=== PATIENT | female | born 1945 | race African-American/Black ===

== ENCOUNTER 2024-08-09 12:14 | Emergency (ER) | payer OTHER, SELFPAY ==
[2024-08-09 12:31] VITALS: BP 160/89; PULSE 115; RESP 22; TEMP 36.7; O2SAT 97; BMI 31.8
--- NOTE | 2024-08-09 12:35 | EKG_ITS ---
[facility] Test Date: 2024-08-09 Pat Name: BISHNU DOMINGO Department: Room: - Gender: Female Records Management Assistant: : [id number] Requested By: Zackery Kelsey Order Number: [id number] Reading MD: Zackery Kelsey Measurements Intervals [place] Rate: 110 P: 44 WI: 144 QRS: 44 QRSD: 132 T: 36 QT: 354 QTc: 479 Interpretive Statements SINUS TACHYCARDIA POSSIBLE LEFT ATRIAL ENLARGEMENT [-0.1mV P-WAVE IN V1/V2] INDETERMINATE AXIS RIGHT BUNDLE BRANCH BLOCK [120+ ms QRS DURATION, UPRIGHT V1, 40+ ms S IN I/aVL/V4/V5/V6] Compared to ECG 01/30/2022 11:13:46 No significant changes /store/S0/[id number].pdf
--- NOTE | 2024-08-09 12:35 | XR_ITS ---
Examination: PA lateral chest 2 views TECHNIQUE: Upright PA lateral chest 2 views Exam date and time: August 09, 2024 1358 hours INDICATIONS: Chest pain bilateral feet ankle leg swelling beginning 2 days ago. FINDINGS: Normal heart size Mild ectasia thoracic aorta. Significant hyperexpansion. No lobar pneumonia or pulmonary edema IMPRESSION: Significant hyperexpansion No lobar pneumonia or pulmonary edema
--- NOTE | 2024-08-09 12:36 | PD.EDRME ---
Rapid Medical Screening Exam RME Arrival date/time: 08/09/24 12:14 79-year-old female with a history of CHF, hyperlipidemia, hypertension presents to the emergency room with a chief complaint of bilateral lower extremity swelling x 2 weeks that is progressively gotten worse in the last 4 days. I have greeted and performed a focused initial assessment of this patient. A comprehensive ED assessment and evaluation of the patient, analysis of all test results, and completion of the medical decision making process will be conducted by additional ED providers. Chief Complaint: Ankle/Foot Injury Time Seen by Provider: 08/09/24 12:22 Vital signs: Vital Signs Temperature 98.1 F 08/09/24 12:31 Pulse Rate 115 H 08/09/24 12:31 Respiratory Rate 22 H 08/09/24 12:31 Blood Pressure 160/89 H 08/09/24 12:31 Pulse Oximetry (%) 97 08/09/24 12:31 Oxygen Delivery Method Room Air 08/09/24 12:31 Vital signs reviewed by provider: Yes
[2024-08-09 13:36] LABS: Basophils # (Auto) 0.1 Thou/mm3 (0.0-0.2); Basophils % (Auto) 1 % (0-2.5); Eosinophils # (Auto) 0.1 Thou/mm3 (0.0-0.5); Eosinophils % (Auto) 1 % (0-10); Hematocrit 42.1 % (36.0-46.0); Hemoglobin 14.1 g/dL (12.0-16.0); Immature Granulocytes % (Auto) 0 % (0-0); Immature Granulocytes Auto 0.03 Thou/mm3 (0.00-0.00); Lymphocytes # (Auto) 3.5 Thou/mm3 (1.0-4.8); Lymphocytes % (Auto) 32 % (10-50); Mean Corpuscular HGB Conc 33.5 g/dl (31.0-37.0); Mean Corpuscular Hemoglobin 30.1 pg (25.0-35.0); Mean Corpuscular Volume 90 fL (80-100); Monocytes # (Auto) 0.9 Thou/mm3 (0.0-0.8); Monocytes % (Auto) 8 % (0-12); Neutrophils # (Auto) 6.4 Thou/mm3 (1.8-7.7); Neutrophils % (Auto) 59 % (37-80); Nucleated Red Blood Cell % 0 /100 WBC (0); Platelet Count 312 Thou/mm3 (140-440); RDW Standard Deviation 46.1 fL (36.4-46.3); Red Blood Count 4.68 Miln/mm3 (4.00-5.20)
[2024-08-09 13:52] LABS: Partial Thromboplastin Time 25.3 Seconds (22.0-36.0); Prothrombin Time 10.9 Seconds (9.0-12.2)
[2024-08-09 14:01] LABS: B-Type Natriuretic Peptide 33 pg/mL (0-100)
[2024-08-09 14:04] LABS: Alanine Aminotransferase 13 U/L (10-49); Albumin, Serum 4.3 gm/dL (3.4-4.8); Albumin/Globulin Ratio 1.8 (1.2-2.2); Alkaline Phosphatase 73 U/L (46-116); Anion Gap 8 (7-16); Aspartate Amino Transferase 14 U/L (0-34); BUN/Creatinine Ratio 12 Ratio (12-20); Bilirubin,Total 0.4 mg/dL (0.3-1.2); Blood Urea Nitrogen 12 mg/dL (9-23); Carbon Dioxide 27.3 mMol/L (20.0-31.0); Chloride 108 mMol/L (98-107); Estimated Creatinine Clearance 45.4 mL/min (>60); Globulin 2.4 gm/dL (2.3-3.5); Glucose 115 mg/dL (74-106); Magnesium 1.8 mg/dL (1.6-2.6); Osmolality,Calculated 285 (275-295); Sodium 143 mMol/L (136-145); Total Protein 6.7 gm/dL (5.7-8.2); Troponin I < 0.020 ng/mL (0.0-0.045); eGFR 57 See Note
[2024-08-09 15:29] LABS: Collection Type, Urine Clean Catch
[2024-08-09 15:35] LABS: Bilirubin,Urine Negative (Negative); Blood,Urine Negative (Negative); Clarity,Urine Clear (Clear/Hazy); Color,Urine Yellow (Lt Yel-Yel); Glucose, Urine Negative (Negative); Ketones,Urine Negative (Negative); Leukocyte Esterase,Urine Negative (Negative); Nitrite,Urine Negative (Negative); PH,Urine 6.5 (5.0-7.0); Protein,Urine Trace (Neg - Trace); RBC,Urine 4 /hpf (0-3); Squamous Epithelial Cell,Urine 5 /hpf (0-5); Urobilinogen,Urine Negative mg/dL (0.0-1.0); WBC,Urine 2 /hpf (0-5)
[2024-08-09 15:42] LABS: Amphetamine/Methamp Scrn,U Negative (Negative); Barbiturate Screen,Urine Negative (Negative); Benzodiazepines Screen,Urine Negative (Negative); Benzoylecgonine Screen, Ur Negative (Negative); Fentanyl Screen,Urine Negative (Negative); Opiate Screen,Urine Positive (Negative); THC Screen,Urine Positive (Negative)
[2024-08-09 16:12] VITALS: BP 152/86; PULSE 98; RESP 20; TEMP 36.6; O2SAT 95
--- NOTE | 2024-08-09 16:33 | PD.EDEXREM ---
ED Extremity Problem RME/HPI General Chief complaint: Ankle/Foot Injury Stated complaint: BILATERAL FEET, ANKLE, LEGS SWELLING X 2 DAYS Time Seen by Provider: 08/09/24 12:22 Arrival date/time: 08/09/24 12:14 RME / HPI RME / HPI Narrative: 79-year-old female with a history of CHF, hyperlipidemia, hypertension presents to the emergency room with a chief complaint of bilateral lower extremity swelling x 2 weeks that is progressively gotten worse in the last 4 days. Patient stopped taking her spironolactone for the last few days. Patient denies any chest pain denies any shortness of breath. A friend who brought the patient here is concerned because patient was just infected from her apartment. And she is temporarily staying with a friend. The friend is not comfortable taking care of her. She is asking if we can asked the social services director to help her. Related Data Home Medications ?Medication ?Instructions ?Recorded ?Confirmed hydrocodone 7.5 mg-acetaminophen 1 tab PO Q6H PRN Pain 06/02/20 01/30/22 325 mg tablet metoprolol succinate 25 mg 25 mg PO QDAY 06/02/20 01/27/22 tablet,extended release 24 hr omeprazole 40 mg capsule,delayed 40 mg PO QDAY 06/02/20 01/27/22 release rosuvastatin 5 mg tablet 5 mg PO QDAY 06/02/20 01/27/22 famotidine 40 mg tablet 40 mg PO HS 01/27/22 01/27/22 cholecalciferol (vitamin D3) 50 50 mcg PO QDAY 01/28/22 01/28/22 mcg (2,000 unit) tablet (Vitamin D3) Previous Rx's ?Medication ?Instructions ?Recorded apixaban 2.5 mg tablet (Eliquis) 2.5 mg PO BID #60 tabs 02/01/22 nicotine 14 mg/24 hr daily 14 mg top QDAY #7 ea 02/01/22 transdermal patch Allergies Allergy/AdvReac Type Severity Reaction Status Date / Time Penicillins Allergy Intermediate Swelling Verified 08/09/24 12:17 of Lip/Tongue/Throat Review of Systems Review of Systems Narrative Review of Systems: Review of system reviewed and within normal limits except mentioned in HPI ED Exam Narrative Physical exam: VITAL SIGNS: Reviewed. GENERAL APPEARANCE: Alert and interactive, follows commands, no acute distress, HEAD AND FACE: Non-traumatic. ENT: PERRL, pink conjunctivitis, eyelid no trauma, Mucous membrane moist. NECK: Supple, nontender, no nuchal rigidity. CHEST: No tenderness, no crepitus, no paradoxical movement, no retractions. LUNGS: Clear, well ventilated, symmetric, no rales, no wheezing, no ronchi, no stridor, good breath sounds bilaterally. HEART: Regular rate, regular rhythm, no murmur, no gallops. ABDOMEN: Soft, positive bowel sounds, nondistended, no guarding, nontender, no rebound, no masses, RECTAL: Deferred. GENITAL: Deferred. NEUROLOGICAL: Gross motor function intact sensory function intact, Appropriate for age. MUSCULOSKELETAL: low back nontender, full range of motion. EXTREMITIES: Bilateral lower extremity +2 edema, nontender, full range of motion. SKIN: Color pink, dry, no rash, no lacerations, no abrasions, no contusions. LYMPHATICS: Deferred. Course Quality Measures none Orders Category Date Time Status EKG (ED ONLY) *Do not use* NOW Care 08/09/24 12:35 Completed EKG (ED Only) Stat Exams 08/09/24 12:35 Draft XR chest 2V Stat Exams 08/09/24 12:35 Completed B-Type Natriuretic Peptide Stat Lab 08/09/24 13:21 Completed CBC Stat Lab 08/09/24 13:21 Completed Comprehensive Metabolic Panel Stat Lab 08/09/24 13:21 Completed Drug Screen,Urine Stat Lab 08/09/24 15:11 Completed Magnesium Stat Lab 08/09/24 13:21 Completed Partial Thromboplastin Time Stat Lab 08/09/24 13:21 Completed Prothrombin Time with INR Stat Lab 08/09/24 13:21 Completed Troponin I Stat Lab 08/09/24 13:21 Completed Urinalysis Stat Lab 08/09/24 15:11 Completed Referral Mold Press Operator NOW 08/09/24 16:33 Active Vital Signs Vital signs: Vital Signs Temperature 98.1 F 08/09/24 12:31 Pulse Rate 115 H 08/09/24 12:31 Respiratory Rate 22 H 08/09/24 12:31 Blood Pressure 160/89 H 08/09/24 12:31 Pulse Oximetry (%) 97 08/09/24 12:31 Oxygen Delivery Method Room Air 08/09/24 12:31 Extremity Problem MDM Narrative MDM Narrative:: 79-year-old female with a history of CHF, hyperlipidemia, hypertension presents to the emergency room with a chief complaint of bilateral lower extremity swelling x 2 weeks that is progressively gotten worse in the last 4 days. Patient stopped taking her spironolactone for the last few days. Patient denies any chest pain denies any shortness of breath. A friend who brought the patient here is concerned because patient was just infected from her apartment. And she is temporarily staying with a friend. The friend is not comfortable taking care of her. She is asking if we can asked the social services director to help her. Patient's workup today CBC came back unremarkable no leukocytosis. CMP unremarkable urinalysis no UTI. Chest x-ray came back unremarkable. EKG as interpreted by me shows sinus tachycardia, ventricular rate of 110 bpm, no ST segment elevation or depression noted. Patient was referred to social services director, in the emergency room, and told me that they were given resources. Patient is okay to visit her at home. Patient data External records reviewed:: None Clinical information provided by:: none Social determinants that could affect healthcare access:: none Patient has the following chronic illnesses:: Hypertension history of lower extremity swelling How is presenting disease/condition affected by chronic disease/condition?: exacerbated by Evaluation data The following diagnostics were reviewed and interpreted by me:: lab results, radiology exam(s) and EKG tracing(s) Lab and/or radiology exams considered but not ordered:: None Interpretation Summary: See results in MDM Medications / Prescriptions Medications or Prescriptions considered but not ordered:: None Medication administrations:: None Consultations Consultation(s) initiated? (list below): No Diagnosis Extremity Problem Differential Diagnosis: lower extremity edema and other (Chronic lower leg edema) Most likely diagnosis given after review of the tests above:: Chronic lower leg edema Admission Indicated Admission indicated?: not indicated Admission Request Was there a request for admission?: No Disposition Plan Disposition Plan: Discharge Discharge Attestation Discharge Attestation: The patient and all family members were given an opportunity to ask questions and understood the discharge instructions. Discharge instructions specifically effects, indications for sooner follow up or return to the emergency department, and the expected course of current diagnosis. Patient condition: Stable Discharge Plan Plan Patient Disposition: HOME (Self Care) Discharge Disposition comment: stable Prescriptions/Referrals Prescriptions/Med Rec: No Action omeprazole 40 mg Capsule,Delayed Release(Dr/Ec) 40 mg PO QDAY hydrocodone-acetaminophen 7.5-325 mg Tablet 1 tab PO Q6H PRN (Reason: Pain) metoprolol succinate 25 mg Tablet Extended Release 24 Hr 25 mg PO QDAY rosuvastatin 5 mg Tablet 5 mg PO QDAY famotidine 40 mg Tablet 40 mg PO HS cholecalciferol (vitamin D3) [Vitamin D3] 50 mcg (2,000 unit) Tablet 50 mcg PO QDAY nicotine 14 mg/24 hr Patch 24 Hour 14 mg top QDAY Qty: 7 0RF Eliquis 2.5 mg Tablet 2.5 mg PO BID Qty: 60 0RF Referrals: Zev Peck MD [Primary Care Provider] - In 1 week Problem List Clinical Impression: Bilateral leg edema Patient/Caregiver Discharge Instructions Discharge Activity: activity as tolerated Education Materials: ED Leg Swelling in Both Legs Additional Instructions: Thank you for the opportunity for serving you today. You are stable for discharged . You are advised to: Follow-up with your PCP in 1 to 2 days Return to ED for worsening of symptoms Please elevate your legs as needed please wear compression stocking in the morning remove it during the night please take your spironolactone that was prescribed by your PCP daily Print Language: Austrian Stand Alone Forms: Daina Award Info., Patient Portal Info Letter KATHLEEN/VIOLETA Supervising Physician KATHLEEN/VIOLETA Supervising Physician: MD Nick
--- NOTE | 2024-08-09 16:56 | PC.CC ---
[id number]- GILBERTO Ramirez and GILBERTO Veliz met with pt at bedside, as RN requested SS to speak with the pt. Pt reported she was seen here today for concerns regarding her leg and swelling. Pt was accompanied with her friend Mitzy Arias [phone]. Pt reported she is temporarily living with Mitzy but they are actively looking for permanent housing for the pt and community resources. GILBERTO Ramirez and GILBERTO Veliz provided the community resource guide, provided information to [facility] and [employer], as well as [employer]. Pt was receptive and Mitzy stated she will reach out to those services on Monday morning. Pt was also provided information regarding the one time temporary housing assistance from [employer] and pt stated she would do so.
[2024-08-09 17:10] VITALS: BP 168/80; PULSE 107; RESP 18; TEMP 36.4; O2SAT 96
== END 2024-08-09 17:40 | disposition home or self-care (01) ==
PROVIDERS: Nurse Practitioner Family; Emergency Provider Emergency Medicine; PCP Family Medicine
DX: R60.0 Localized edema (principal); E78.5 Hyperlipidemia, unspecified; I11.0 Hypertensive heart disease with heart failure; I50.9 Heart failure, unspecified
CPT/HCPCS: 36415; 71046; 80053; 80307; 81001; 83735; 83880; 84484; 85025; 85610; 85730; 93005; 99283